=== PATIENT | male | born 1985 | race Caucasian/White ===

== ENCOUNTER 2017-12-27 16:32 | Emergency (ER) | payer MEDICAID ==
[2017-12-27 16:37] VITALS: RESP 16; TEMP 98.4
--- NOTE | 2017-12-27 17:04 | EDPHY ---
H & P Stated Complaint: anxiety Time Seen by Provider: 12/27/17 17:04 HPI/ROS: HPI: This is a 32-year-old male who presents with Chief Complaint: Anxiety Location:psych Quality: Anxiety, paranoia Duration: Months Signs and Symptoms: No suicidal ideation, no homicidal ideation, + insomnia, + racing thoughts, + labile emotions Timing: Chronic Severity: Moderate Context: Patient is originally from [place] moved to [place] several months ago. He was in [place] for short time and was charged with DUI went to penitentiary for 10 months. While in penitentiary he was diagnosed with what seems to be schizoaffective disorder. He was started on Zyprexa 3 times a day and Ativan p.r.n. he reports that for the last 3-4 days he has had increased anxiety, racing thoughts, paranoia to the point that he had to leave his job early yesterday. He has been sober for more than 10 month. He is against taking any pharmaceuticals psychiatric medications except Ativan and smoking marijuana. He denies any other recreational drug use. He admits to taking Ativan 10 mg a day for the last 4 days without improvement in his symptoms. Reports that he has friends in the area but no family. Modifying Factors: Ativan no relief Comment: ROS: see HPI Constitutional: No fever, no chills, no weight loss Eyes: No blurred vision Respiratory: No shortness of breath, no cough Cardiovascular: No chest pain Gastrointestinal: No nausea, no vomiting, no diarrhea Genitourinary: No dysuria Extremities: No myalgias Neurologic: No weakness, no numbness Skin: No rashes Hematologic: No bruising, no bleeding MEDICAL/SURGICAL/SOCIAL HISTORY: Medical history: Schizoaffective [id number], history of substance abuse. Does not take any regular medications. Surgical history: Denies Social history: Employed. CONSTITUTIONAL: Well-developed, well-nourished, adult white male, tidy, good eye contact, suspicious, awake and alert, no obvious distress HEENT: Atraumatic and normocephalic, PERRL, EOMI. Tympanic membranes clear. Oropharynx clear, no exudate and moist pink mucosa. Airway patent. No lymphadenopathy. No meningismus. Cardiovascular: Normal S1/S2, regular rate, regular rhythm, without murmur rub or gallop. PULMONARY/CHEST: Symmetrical and nontender. Clear to auscultation bilaterally. Good air movement. No accessory muscle usage. ABDOMEN: Soft, nondistended, nontender, no rebound, no guarding, no peritoneal signs, no masses or organomegaly. No CVAT. EXTREMITIES: 2/2 pulses, strength 5/5, no deformities, no clubbing, no cyanosis or edema. NEUROLOGICAL: no focal neuro deficits. GCS 15. SKIN: Warm and dry, no erythema. no rash. Good capillary refill. PSYCH: Good eye contact, no flight of ideas, organized thought process, fair insight and judgment, no auditory and visual command hallucinations, no suicidal ideation with a plan, no homicidal ideation, + paranoid Source: Patient Exam Limitations: No limitations - Personal History Current Tetanus/Diphtheria Vaccine: Unsure Current Tetanus Diphtheria and Acellular Pertussis (TDAP): Unsure - Medical/Surgical History Hx Asthma: No Hx Chronic Respiratory Disease: No Hx Diabetes: No Hx Cardiac Disease: No Hx Renal Disease: No Hx Cirrhosis: No Hx Alcoholism: No Hx HIV/AIDS: No Hx Splenectomy or Spleen Trauma: No Other PMH: denies - Social History Smoking Status: Heavy smoker Constitutional: Initial Vital Signs Temperature (C) 36.9 C 12/27/17 16:35 Heart Rate 86 12/27/17 16:35 Respiratory Rate 16 12/27/17 16:35 Blood Pressure 129/71 H 12/27/17 16:35 O2 Sat (%) 96 12/27/17 16:35 O2 Delivery Mode Room Air Allergies/Adverse Reactions: Penicillins Allergy (Verified 12/27/17 16:34) Home Medications: Medication Instructions Recorded Ativan 12/27/17 hydrOXYzine HCL [Hydroxyzine HCl] 50 mg PO Q8 PRN #10 tablet 12/27/17 Medical Decision Making ED Course/Re-evaluation: racing manager consult and given patient information to establish care with a PCP and close follow-up with behavioral health. Patient does not meet M1 or Detainer criteria. 1 mg Ativan in the ER but no prescription due to history of abuse poor follow- up. Also do not believe Ativan is the right medication for this patient at the time as it appears he has schizoaffective disorder. Call back into the room by the patient and he is not happy that I am not giving him prescription for Ativan 10 mg per day until he establishes care with primary care or behavioral health. I advised that emergency room providers do not prescribe chronic medications especially at those high dosages. I offered to give him hydroxyzine tablets dispensed #10 only. Patient is exhibiting drug- seeking behavior. This patient was seen under the supervision of my secondary supervising physician. I evaluated care for this patient independently. Differential Diagnosis: Differential diagnosis includes but is not limited to schizoaffective disorder, schizophrenia, paranoid, depression, substance abuse, narcissistic personality. - Data Points Medications Given: Discontinued Medications Lorazepam (Ativan) 1 mg PO EDNOW ONE Stop: 12/27/17 18:06 Last Admin: 12/27/17 18:09 Dose: 1 mg Departure - Departure Disposition: Home, Routine, Self-Care Clinical Impression: Anxiety, Paranoia Condition: Good Instructions: Lorazepam (By mouth), Schizoaffective Disorder (ED) Additional Instructions: Please establish care with a primary care and behavioral health as soon as possible. Case Management: [facility] [address] [address] [facility] (see pamphlet I gave you for locations, phone numbers, services) Referrals: [facility],. [Clinic] - As per Instructions [facility] [Outside] - As per Instructions Prescriptions: hydrOXYzine HCL [Hydroxyzine HCl] 50 mg PO Q8 PRN #10 tablet PRN Reason: Anxiety
--- NOTE | 2017-12-27 17:59 | ASMTCMCOM ---
CM Note CM Note Notes: Chart reviewed. Met with patient to provide resources for establishing primary care physician and behavioral health management (see ER report details). Patient admits to history of heavy Methamphetamine use which "may have lead to my crazy thoughts and racing brain". he tells me that he is "sober" 90 days from Meth and alcohol, but does take Ativan and smoke pot "because they are not a problem". I talked with him about self medicating and the importance of establishing a PCP, in part for medication management. We discussed options for [facility] and [facility]. I have encouraged him to look into [facility] due to [facility], including crisis and addiction services. Patient tells me that he does not want any "counceling" and that he has a sponsor in AA. I have explained that in order to be prescribed medication-of any kind-he will have to establish and be followed by a clinic/PCP. I have provided patient contact information and details for both [facility] and [facility]. I have encouraged him to call either/both in the morning to schedule an appointment. I informed him of "drop in" hours for [facility] and contact information for the 24 hour crisiscenter at [facility]. Patient verbalizes understanding but states he is hoping he can get a "weeks worth of Ativan" while he is here. I encouraged him to not count on that, and encouraged him to work on finding a provider (PCP) and continue his AA meetings Date Signed: 12/27/2017 05:58 PM Electronically Signed By:Jordana Stevenson RN
[2017-12-27] MEDS ORDERED: LORazepam 1 MG TAB PO ONE (18:05)
[2017-12-27 18:11] VITALS: BP 117/83; PULSE 99; O2SAT 94
== END 2017-12-27 18:46 | disposition home or self-care (01) ==
DX: F41.9 Anxiety disorder, unspecified (principal); F22 Delusional disorders; F17.200 Nicotine dependence, unspecified, uncomplicated

== ENCOUNTER 2018-02-05 22:22 | Emergency (ER) | payer MEDICAID ==
[2018-02-05 22:33] VITALS: BP 142/92; PULSE 80; RESP 18; TEMP 98.2; O2SAT 98
[2018-02-05] MEDS ORDERED: LORAZEPAM 1 MG PREPACK#4 BTL TAKEHOME ONE (22:45)
--- NOTE | 2018-02-05 22:45 | EDPHY ---
H & P Stated Complaint: SENT FROM [facility] Time Seen by Provider: 02/05/18 22:23 HPI/ROS: HPI The patient presents brought in by ambulance by paramedics for medical clearance for [facility]. The patient has a history of anxiety for which he takes Ativan as needed though took his last pill last night at 5:00 p.m.. He has been using methamphetamine for the last 24 hr and this has increased his symptoms of anxiety. He also is feeling somewhat paranoid, worried that people are following him. He has had these symptoms previously in the setting of methamphetamine use. He is not drinking any alcohol. He does not have any thoughts of harming himself. He has been to [facility] in [place] for his symptoms of anxiety. He has been given Ativan, short courses of this as well as a prescription for propanolol. He has not filled the propanolol prescription. REVIEW OF SYSTEMS Constitutional: No fever, no chills. Eyes: No discharge. ENT: No sore throat. Cardiovascular: No chest pain, no palpitations. Respiratory: No cough, no shortness of breath. Gastrointestinal: No abdominal pain, no vomiting. Genitourinary: No hematuria. Musculoskeletal: No back pain. Skin: No rashes. Neurological: No headache. PMHx: History of anxiety Soc Hx: Works in construction, history of alcohol abuse and methamphetamine abuse, smokes cigarettes PHYSICAL General Appearance: Alert, no distress Eyes: Pupils equal and round no pallor or injection ENT, Mouth: Mucous membranes moist Respiratory: There are no retractions, lungs are clear to auscultation Cardiovascular: Regular rate and rhythm Gastrointestinal: Abdomen is soft and non-tender, no masses, bowel sounds normal Neurological: A&O, moves all extremities Skin: Warm and dry, no rashes Musculoskeletal: Neck is supple non tender Extremities: symmetrical, full range of motion Psychiatric: Patient is oriented X 3, there is no agitation Source: Patient, EMS Exam Limitations: No limitations - Personal History Current Tetanus/Diphtheria Vaccine: Yes Current Tetanus Diphtheria and Acellular Pertussis (TDAP): Yes - Medical/Surgical History Hx Asthma: No Hx Chronic Respiratory Disease: No Hx Diabetes: No Hx Cardiac Disease: No Hx Renal Disease: No Hx Cirrhosis: No Hx Alcoholism: No Hx HIV/AIDS: No Hx Splenectomy or Spleen Trauma: No Other PMH: ANXIETY - Social History Smoking Status: Heavy smoker Constitutional: Initial Vital Signs Temperature (C) 36.8 C 02/05/18 22:20 Heart Rate 80 02/05/18 22:20 Respiratory Rate 18 02/05/18 22:20 Blood Pressure 142/92 H 02/05/18 22:20 O2 Sat (%) 98 02/05/18 22:20 O2 Delivery Mode Room Air Allergies/Adverse Reactions: Penicillins Allergy (Verified 02/05/18 22:35) Home Medications: Medication Instructions Recorded Ativan 12/27/17 hydrOXYzine HCL [Hydroxyzine HCl] 50 mg PO Q8 PRN #10 tablet 12/27/17 Medical Decision Making Differential Diagnosis: This is a 32-year-old male with history of anxiety as well as recent methamphetamine binge who presents brought in by ambulance from [facility] for medical clearance. Apparently his vital signs were abnormal during his evaluation and there was some concern for benzodiazepine withdrawal. Here, his vital signs are actually normal. He has an unremarkable physical exam. He has been using methamphetamine for the last 24 hr. He has been taking Ativan for the last several days which she has a prescription for. He could be having mild benzodiazepine withdrawal. I plan to give him a pill pack of Ativan to go home with. He will return to [facility] to complete his evaluation for anxiety. I feel his symptoms could also be related to methamphetamine intoxication, urine toxicology was positive for this earlier today. He also could be suffering from generalized anxiety disorder. He will be medically cleared and discharged. Departure - Departure Disposition: Home, Routine, Self-Care Clinical Impression: Medical clearance for psychiatric admission, Anxiety, Methamphetamine use Condition: Good Instructions: Lorazepam (By mouth), Methamphetamine Abuse (ED), Anxiolysis in Adults (ED) Additional Instructions: I recommend that you failure prescription for propanolol to see if that helps. In the meantime, you can take Ativan 1 mg every 6 hr as needed for anxiety. Please return to the emergency room if your worse in any way. Referrals: [facility],. [Clinic] - As per Instructions
== END 2018-02-05 22:54 | disposition home or self-care (01) ==
LOC: EDUNIT#
DX: Z04.6 Encounter for general psychiatric examination, requested by authority (principal); F41.9 Anxiety disorder, unspecified; F15.90 Other stimulant use, unspecified, uncomplicated; F17.210 Nicotine dependence, cigarettes, uncomplicated